=== PATIENT | female | born 1960 | race Caucasian/White ===

== ENCOUNTER 2019-09-15 08:05 | Outpatient (CLI) | payer BC, SELFPAY ==
--- NOTE | ~2019-09-15 | MM_ITS ---
EXAMINATION: MM screening [facility] BI w patrick HISTORY: Screening mammogram TECHNIQUE: Craniocaudal and mediolateral oblique 3-D tomosynthesis images were obtained and synthetic 2-D images were generated. CAD analysis was submitted and interpreted. COMPARISON: 08/26/2018, 07/30/2017, 05/14/2016 bilateral digital screening mammogram examinations BREAST PARENCHYMAL COMPOSITION: There are scattered areas of fibroglandular density. FINDINGS: Stable circumscribed benign-appearing left axillary tail lymph node, unchanged since 2015. There is no evidence of suspicious mass, calcification, or architectural distortion to suggest malignancy in either breast. There has been no suspicious interval change. IMPRESSION: 1. No mammographic evidence of malignancy. 2. Recommend routine screening mammography in one year. BI-RADS Category 2: Benign finding(s). Reviewed, dictated and finalized at location A. CHING DEPARTMENT SUPERVISOR
== END 2019-09-15 08:06 | disposition home or self-care (01) ==
PROVIDERS: PCP Family Medicine; Visit Provider Family Medicine
DX: Z12.31 Encounter for screening mammogram for malignant neoplasm of breast (principal)
CPT/HCPCS: 77063; 77067

== ENCOUNTER 2020-08-01 03:15 | Outpatient (CLI) | payer BC, SELFPAY ==
[2020-08-01 16:31] LABS: SARS-CoV-2 RNA PCR Negative
== END 2020-08-01 03:16 | disposition home or self-care (01) ==
LOC: ANHCOVIDDT 03:16
PROVIDERS: PCP Student in an Organized Health Care Education/Training Program; Visit Provider Internal Medicine Gastroenterology
DX: Z01.812 Encounter for preprocedural laboratory examination (principal); Z20.822 Contact with and (suspected) exposure to COVID-19
CPT/HCPCS: C9803; U0003; U0005

== ENCOUNTER 2020-08-04 01:31 | Day surgery (SDC) | payer BC, SELFPAY ==
[2020-07-22 09:59] VITALS: BMI 22.1
[2020-08-04 07:21] VITALS: BP 123/81; PULSE 113; RESP 18; TEMP 36.3; O2SAT 98
[2020-08-04] MEDS: LACTATED RINGERS 1,000 ML 150 ML IV CONT (07:35)
--- NOTE | 2020-08-04 08:06 | PM.IMHP ---
H&P: HPI History of Present Illness Date/Time: 08/04/20 08:06 Chief Complaint: Reason for visit is colonoscopy. Narrative: Reason for visit is colonoscopy. This very pleasant lady seen in consultation request of the primary physician. Impression: Screening colonoscopy. The patient has a family history of colorectal cancer. IBS with alternating constipation and diarrhea. HTN. Anxiety/depression. Recommendation: Colonoscopy. History: This very pleasant lady's here for screening colonoscopy. She has a family history colorectal cancer. She tends have alternating constipation and diarrhea. She has been diagnosed having IBS for years. Hematochezia, melena acholic stools at night. She is here for colonoscopy for screening. Physical examination: General: very pleasant patient in no acute distress. HEENT: Head was normocephalic sclerae is clear mouth without masses neck was supple. Heart: Rate rhythm regular without S3 or S4. Lungs: CTA. Abdomen: Soft with no guarding or rigidity. Bowel sounds were active. Neurologic: Cranial nerves 2 through 12 intact. No focal defects. No clonus. Musculoskeletal system: Revealed no joint tenderness or swelling no muscle atrophy. Extremities: Reveal no significant edema. Skin: Warm and dry with normal turgor. Mental status: intact. Patient is alert and oriented. Review of Systems Review of Systems: All systems reviewed & are unremarkable except as noted in HPI and below PMFSH Past Medical History Medical History (Updated 11/27/19 @ 13:44 by Cheri Sheikh NP) Broken toe Depression Essential (primary) hypertension Irritable bowel syndrome with both constipation and diarrhea Rosacea Surgical History Surgical History History of ear surgery 1984, 1988:stapedectomies: bilateral History of partial hysterectomy 2000 History of rectal surgery 2005 Family History Family History Mother Family history of osteoporosis Family history of rheumatoid arthritis Father Hypertension Family history of kidney disease Grandparent Carcinoma of colon Diabetes mellitus Sibling Family history of seizure disorder Other Family history of atrial fibrillation Social History Social History Social History: Changed to healthy diet and walks/hikes daily - Lost 150 lbs with lifestyle changes, maintaining weight now. Smoking status: Never smoker Second hand tobacco smoke exposure: No Alcohol intake: current Drinks per week: 2 Substance use: never Substance use type: does not use Living arrangements: with family Gender identity (if verbalized by the patient): Female Meds Home Medications and Allergies Home Medications Medication Instructions Recorded Confirmed Type calcium carbonate-vitamin D3 600 1 tablet PO DAILY 05/19/19 07/22/20 History mg(1,500 mg)-400 unit chewable tablet dicyclomine 10 mg capsule 10 mg PO BID #120 cap 05/19/19 07/22/20 Rx lisinopril 10 mg tablet 10 mg PO DAILY #90 tablet 02/09/20 07/22/20 Rx paroxetine HCl 20 mg tablet 20 mg PO DAILY #90 tablet 02/09/20 07/22/20 Rx meloxicam 15 mg PO DAILY 07/22/20 07/22/20 History Allergies Allergy/AdvReac Type Severity Reaction Status Date / Time erythromycin base Allergy Unknown Nausea Verified 08/04/20 07:13 naproxen AdvReac Unknown Ulcers Verified 08/04/20 07:13 Vital Signs Vital Signs - 24 hr 08/04/20 07:21 Temperature 36.3 C L Pulse Rate 113 H Respiratory Rate 18 Blood Pressure 123/81 Pulse Oximetry 98
--- NOTE | 2020-08-04 08:32 | WPDANESEPPF ---
Anes - Initial Pre Proc Eval Procedure: Operation Date: 08/04/20 08:30 Proposed Procedures p Screening Colonoscopy - Cb Lovell DO Date/Time: 08/04/20 08:32 Surgeon: Cb Lovell DO Pre Op Diagnosis: Neoplasm Screening Patient Data Age: 60 Gender: F Height: 5 ft 10 in Weight: 69.9 kg Last Vital Signs Temp 97.3 F L 08/04/20 07:21 Pulse 113 H 08/04/20 07:21 Resp 18 08/04/20 07:21 BP 123/81 08/04/20 07:21 Pulse Ox 98 08/04/20 07:21 Allergies Allergy/AdvReac Type Severity Reaction Status Date / Time erythromycin base Allergy Unknown Nausea Verified 08/04/20 07:13 naproxen AdvReac Unknown Ulcers Verified 08/04/20 07:13 Home Medications Medication Instructions Recorded Confirmed Type calcium carbonate-vitamin D3 600 1 tablet PO DAILY 05/19/19 07/22/20 History mg(1,500 mg)-400 unit chewable tablet dicyclomine 10 mg capsule 10 mg PO BID #120 cap 05/19/19 07/22/20 Rx lisinopril 10 mg tablet 10 mg PO DAILY #90 tablet 02/09/20 07/22/20 Rx paroxetine HCl 20 mg tablet 20 mg PO DAILY #90 tablet 02/09/20 07/22/20 Rx meloxicam 15 mg PO DAILY 07/22/20 07/22/20 History Patient hx anesthesia problems: none Family hx anesthesia problems: none PMFSH Past Medical History Medical History (Updated 11/27/19 @ 13:44 by Cheri Sheikh NP) Broken toe Depression Essential (primary) hypertension Irritable bowel syndrome with both constipation and diarrhea Rosacea Surgical History Surgical History History of ear surgery 1984, 1988:stapedectomies: bilateral History of partial hysterectomy 2000 History of rectal surgery 2006 Family History Family History Mother Family history of osteoporosis Family history of rheumatoid arthritis Father Hypertension Family history of kidney disease Grandparent Carcinoma of colon Diabetes mellitus Sibling Family history of seizure disorder Other Family history of atrial fibrillation Social History Social History Social History: Changed to healthy diet and walks/hikes daily - Lost 150 lbs with lifestyle changes, maintaining weight now. Smoking status: Never smoker Second hand tobacco smoke exposure: No Alcohol intake: current Drinks per week: 2 Substance use: never Substance use type: does not use Living arrangements: with family Gender identity (if verbalized by the patient): Female Anes - Eval Final PreProcedure Day of Procedure 08/04/20 08:32 Patient weight: normal Heart: regular rate and rhythm Lungs: clear to auscultation Airway: Mallampati scale class II Neurological: alert and oriented Last oral intake: >/= 8 hours ASA classification: II Emergent: no Anesthetic plan: proceed Anesthesia type and monitoring: general GIVS and standard monitoring Informed Consent: The patient's anesthetic plan and its attendant risks and benefits were discussed with the patient/family/POA. Questions were solicited and answers provided to the satisfaction of the patient/family/POA.
[2020-08-04 09:13] VITALS: BP 87/62; PULSE 79; RESP 24; O2SAT 100
[2020-08-04 09:23] VITALS: BP 104/75; PULSE 67; RESP 16; O2SAT 100
== END 2020-08-04 09:47 | disposition home or self-care (01) ==
PROVIDERS: PCP Student in an Organized Health Care Education/Training Program; Visit Provider Internal Medicine Gastroenterology
PROC: 0DJD8ZZ Inspection of Lower Intestinal Tract, Via Natural or Artificial Opening Endoscopic (ICD-10-PCS; CPT 45378; principal; 2020-08-04 08:30)
DX: Z12.11 Encounter for screening for malignant neoplasm of colon (principal); K52.9 Noninfective gastroenteritis and colitis, unspecified; K63.5 Polyp of colon; K57.30 Diverticulosis of large intestine without perforation or abscess without bleeding; Z80.0 Family history of malignant neoplasm of digestive organs; I10 Essential (primary) hypertension; F41.8 Other specified anxiety disorders
CPT/HCPCS: 45380; 88305; J7120

== ENCOUNTER 2020-10-31 07:30 | Outpatient (CLI) | payer BC, SELFPAY ==
--- NOTE | ~2020-10-31 | MM_ITS ---
EXAMINATION: MM screening [facility] BI w patrick HISTORY: Screening mammogram TECHNIQUE: Craniocaudal and mediolateral oblique 3-D tomosynthesis images were obtained and synthetic 2-D images were generated. CAD analysis was submitted and interpreted. COMPARISON: 09/15/2019, 08/26/2018, 07/30/2017 BREAST PARENCHYMAL COMPOSITION: The breasts are almost entirely fatty. FINDINGS: RIGHT BREAST: An asymmetry is present in the middle third of the outer breast 6 cm from the nipple on the craniocaudal view. LEFT BREAST: There is no evidence of suspicious mass, calcification, or architectural distortion to s uggest malignancy. There has been no significant interval change. IMPRESSION: 1. Right breast asymmetry on the craniocaudal view. 2. Additional mammographic views and possible breast ultrasound are recommended. BI-RADS Category 0: Incomplete: Needs additional imaging evaluation. Reviewed, dictated and finalized at location A. IMPRESSION: 1. Right breast asymmetry on the craniocaudal view. 2. Additional mammographic views and possible breast ultrasound are recommended . BI-RADS Category 0: Incomplete: Needs additional imaging evaluation.
== END 2020-10-31 07:31 | disposition home or self-care (01) ==
LOC: ANHIMG 07:34
PROVIDERS: PCP Student in an Organized Health Care Education/Training Program; Visit Provider Student in an Organized Health Care Education/Training Program
DX: Z12.31 Encounter for screening mammogram for malignant neoplasm of breast (principal); R92.8 Other abnormal and inconclusive findings on diagnostic imaging of breast
CPT/HCPCS: 77063; 77067

== ENCOUNTER 2020-11-22 11:14 | Outpatient (CLI) | payer BC, SELFPAY ==
--- NOTE | ~2020-11-22 | MMUS_ITS ---
EXAMINATION: MM diagnostic mammo unilat RT, US breast RT limited HISTORY: Right breast asymmetry on screening mammogram TECHNIQUE: Additional 3-D tomosynthesis images of the right breast were performed and synthetic 2-D i mages were generated. CAD analysis was submitted and interpreted. High resolution limited right breas t ultrasound was performed. COMPARISON: 10/31/2020, 09/15/2019, 08/26/2018, 07/30/2017 FINDINGS: MAMMOGRAPHIC FINDINGS: An asymmetry persists in the middle third of the outer breast at the 9:00 6 cm from the nipple on the craniocaudal view. No suspicious calcification or architectural distortion are identified. ULTRASOUND: There is no evidence of focal abnormal solid or cystic mass in the vicinity of the mammographic findi ng in question IMPRESSION: 1. Probably benign right breast asymmetry. 2. Recommend 6 month follow-up right diagnostic mammogram and ultrasound. BI-RADS category 3, probably benign findings. Reviewed, dictated and finalized at location A. IMPRESSION: 1. Probably benign right breast asymmetry. 2. Recommend 6 month follow-up right diagnostic mammogram and ultrasound. BI-RADS category 3, probably benign findings.
== END 2020-11-22 11:15 | disposition home or self-care (01) ==
PROVIDERS: PCP Student in an Organized Health Care Education/Training Program; Visit Provider Student in an Organized Health Care Education/Training Program
DX: N64.89 Other specified disorders of breast (principal)
CPT/HCPCS: 76642; 77065

== ENCOUNTER 2021-06-02 12:41 | Outpatient (CLI) | payer BC, SELFPAY ==
--- NOTE | ~2021-06-02 | MM_ITS ---
EXAMINATION: MM diagnostic erick RT w patrick HISTORY: Six-month follow-up for probably benign right breast asymmetry TECHNIQUE: Craniocaudal, mediolateral, and mediolateral oblique 3-D tomosynthesis images of the right breast were performed and synthetic 2-D images were generated. CAD analysis was submitted and interp reted. COMPARISON: 11/22/2020, 10/31/2020, 09/15/2019, 08/26/2018 BREAST PARENCHYMAL COMPOSITION: The breasts are almost entirely fatty. FINDINGS: No persistent asymmetry is identified. There is no evidence of suspicious mass, calcificati on, or architectural distortion to suggest malignancy. There has been no suspicious interval change. IMPRESSION: 1. No mammographic evidence of malignancy. 2. Routine screening mammography is recommended. BI-RADS Category 1: Negative Reviewed, dictated and finalized at location A. ET MANAGER
== END 2021-06-02 12:42 | disposition home or self-care (01) ==
PROVIDERS: PCP Student in an Organized Health Care Education/Training Program; Visit Provider Student in an Organized Health Care Education/Training Program
DX: N64.89 Other specified disorders of breast (principal)
CPT/HCPCS: 77061; 77065; G0279

== ENCOUNTER 2022-02-07 07:46 | Outpatient (CLI) | payer BC, SELFPAY ==
--- NOTE | ~2022-02-07 | MM_ITS ---
EXAMINATION: MM screening er[facility] BI w patrick HISTORY: Screening mammogram TECHNIQUE: Craniocaudal and mediolateral oblique 3-D tomosynthesis images were obtained and synthetic 2-D images were generated. CAD analysis was submitted and interpreted. COMPARISON: 06/02/2021 diagnostic right mammogram 11/22/2020 diagnostic right mammogram and limited right breast ultrasound 10/31/2020, 09/15/2019, 08/26/2018 bilateral screening mammogram examinations BREAST PARENCHYMAL COMPOSITION: There are scattered areas of fibroglandular density. FINDINGS: There is no evidence of suspicious mass, calcification, or architectural distortion to sugg est malignancy in either breast. There has been no suspicious interval change. IMPRESSION: 1. No mammographic evidence of malignancy. 2. Recommend routine screening mammography in one year. BI-RADS Category 1: Negative Reviewed, dictated and finalized at location A.
== END 2022-02-07 07:47 | disposition home or self-care (01) ==
LOC: ANHIMG 07:48
PROVIDERS: PCP Student in an Organized Health Care Education/Training Program; Visit Provider Student in an Organized Health Care Education/Training Program
DX: Z12.31 Encounter for screening mammogram for malignant neoplasm of breast (principal)
CPT/HCPCS: 77063; 77067

== ENCOUNTER 2022-03-30 13:15 | Outpatient (CLI) | payer BC, SELFPAY ==
--- NOTE | ~2022-03-30 | DEXA_ITS ---
Bone Density Report Name: CAMILO CASEY Age: 61 Sex: Female Ethnicity: White Date of : 1960 Indication: postmenopausal; screening for osteoporosis; inflammatory bowel disease; hysterectomy; Referring Provider: CHARLOTTE, CARLOS EDUARDO Study: Bone densitometry was performed. Exam Date: March 30, 2022 Accession number: [id number] Bone Density: Region BMD T-score Z-score Classification AP Spine(L1-L4) 0.938 -1.0 0.7 Normal Femoral Neck (Left) 0.765 -0.8 0.7 Normal Total Hip (Left) 0.801 -1.2 0.0 Osteopenia Femoral Neck (Right) 0.838 -0.1 1.3 Normal Total Hip (Right) 0.869 -0.6 0.5 Normal Total Hip Mean 0.835 -0.9 0.3 Normal World Health Organization criteria for BMD impression classify patients as: Normal (T-score at or above -1.0), Osteopenia (T-score between -1.0 and -2.5), or Osteoporosis (T-score at or below -2.5). 10-year Fracture Risk(1): Major Osteoporotic Fracture 7.5% Hip Fracture 0.4% Reported Risk Factors: [place] (), Neck BMD=0.765, BMI=24.5 (1) FRAX(R) Version 3.08. Fracture probability calculated for an untreated patient. Fracture probability may be lower if the patient has received treatment. Previous Exams: Region Exam Age BMD T-score BMD Change BMD Change Date g/cm2 vs Baseline vs Previous AP Spine (L1-L4) 03/30/2022 61 0.938 -1.0 -0.061 (-6.1%) -0.061 (-6.1%) 07/30/2017 57 1.000 -0.4 Total Hip(Left) 03/30/2022 61 0.801 -1.2 -0.026 (-3.1%) -0.026 (-3.1%) 07/30/2017 57 0.827 -0.9 Total Hip(Right) 03/30/2022 61 0.869 -0.6 0.023 (2.7%) 0.023 (2.7%) 07/30/2017 57 0.846 -0.8 *Denotes significance at 95% confidence level, LSC for AP Spine = 0.022 g/cm2, LSC for Total Hip = 0.027 g/cm2 Clinical Information Provided by Patient: Has used the following medications: Calcium Has the following medical conditions: Inflammatory bowel diseases, Hysterectomy Patient maximum height was 69.5 Menopause Age: 40 Does not regularly consume dairy products Drinks caffeinated beverages Onset of menses at age 12 Number of children 3 Impression: The patient has low bone mass, based on the Left Total Hip T-score. The patient has an estimated ten-year risk of hip fracture of 0.4% and an estimated ten-year risk of major fracture of 7.5%, based on the WHO FRAX algorithm. The BMD for the AP Spine (L1-L4) decreased, changing by -6.1% since the last DXA exam. Discussion: BONE DENSIT
== END 2022-03-30 13:16 | disposition home or self-care (01) ==
PROVIDERS: PCP Student in an Organized Health Care Education/Training Program; Visit Provider Registered Nurse
DX: Z78.0 Asymptomatic menopausal state (principal); M85.852 Other specified disorders of bone density and structure, left thigh
CPT/HCPCS: 77080

== ENCOUNTER 2024-06-10 09:00 | Outpatient (RCR) | payer BC, SELFPAY ==
--- NOTE | 2024-05-20 11:09 | OPREHPOC ---
Outpatient Therapy Plan of Care This is a Multidisciplinary Plan of Care that may contain components documented by all disciplines (PT, OT, and ST.) PT Problem 1 PT Problem #1 Knowledge Deficit PT Goal 1 Goal / Goal Update 1. Patient will perform independent HEP Target Visit 2 PT Problem 2 PT Problem #2 Impaired Strength PT Goal 1 Goal / Goal Update 1. Normal pelvic floor muscle tone Target Visit 4 PT Problem 3 PT Problem #3 Impaired Functional ADLs PT Goal 1 Goal / Goal Update 1. Patient will report no fecal incontinence for at least 2 weeks 2. Patient will report no more than 3 BM per day Target Visit 4
--- NOTE | 2024-05-20 11:09 | PTOPEVAL1 ---
Assessment and note entered by Nicki Pryor DPT Evaluation Information Assessment Status Evaluation Diagnosis m62.89 ICD-10 Condition Codes (PT) Weakness R53.1 Subjective Information Pt reports 50 years of issues but most recently was diagnosed with microscopic colitis. Has also been told she is chronically constipated and then getting spillover . Has been using metamucil and magnesium citrate. Denies urinary incontinence or pain with urination. Voids 4-8 times a day and sometimes 1 time at night. Can hold urge to void up to 60 minutes. BM multiple times a day, up to 10- 12 times. Reports a lot of gas and Frequent BM after lunch and dinner. On a good day will have 1- 2 BM. Fecal incontinence probably 5 times in the last month. Wears pads at times. Denies history of pelvic pain. Pt has been 3 times, delivered twice, second with twins. All vaginal deliveries, episiotomy with first. Hysterectomy 20 years ago. Rectal surgery for a fissure in 2005. Previously diagnosed with IBS. Pt reports feeling limited and does not schedule things in the afternoon or evening due to bowel issues. Diet: water and coffee x 3 cups a day of half decaf and half regular. 1-2 alcoholic drinks per week. Does not notice coffee or alcohol makes symptoms worse. Eats 3 meals a day. Eats all food groups but may not always get much vegetables. States she gets a lot of fiber per day but unsure amount. Patient goal: complete BM, avoid bowel incontinence Reported Pain Level Pain Score 0: Self Report Assessment PT Clinical Summary The patient is presenting to skilled therapy with a chronic history of GI issues and has been diagnosed with microscopic colitis as well as chronic constipation. She reports increased bowel frequency and fecal incontinence. She demonstrates increased pelvic floor muscle tone and decreased pelvic floor and core strength. These impairments are contributing to her symptoms including incontinence and difficulty with activities out in the community. She will highly benefit from therapy to address these impairments in order to improve overall function. Plan of Care Interventions Electrical Stimulation,Manual Therapy,Neuro Re- education,Patient/Caregiver Education,Therapeutic Activities,Therapeutic Exercise PT Services Indicated Yes Treatment Frequency and 1 time a week for 4 weeks Duration These treatments will address the objective and functional deficits as defined above. The patient will be advanced safely and appropriately in order for the patient to progress towards his/her prior level of function. Additional exercises will be introduced and as well as a comprehensive home exercise program upon discharge, if needed, ?to ensure carryover of functional gains achieved in the clinic. This treatment plan has been reviewed and agreement upon by the patient.
--- NOTE | 2024-06-10 09:30 | OPREHPOC ---
Outpatient Therapy Plan of Care This is a Multidisciplinary Plan of Care that may contain components documented by all disciplines (PT, OT, and ST.) PT Problem 1 PT Problem #1 Knowledge Deficit PT Goal 1 Goal / Goal Update 1. Patient will perform independent HEP Target Visit 2 Progress Met PT Problem 2 PT Problem #2 Impaired Strength PT Goal 1 Goal / Goal Update 1. Normal pelvic floor muscle tone Target Visit 4 Progress Not Met PT Problem 3 PT Problem #3 Impaired Functional ADLs PT Goal 1 Goal / Goal Update 1. Patient will report no fecal incontinence for at least 2 weeks 2. Patient will report no more than 3 BM per day update 06/10/24 1. 1 in last week 2. met Target Visit 4 Progress Partially Met
--- NOTE | 2024-06-10 09:30 | PTOPPROG ---
Assessment and note entered by Nicki Pryor DPT Evaluation Information Assessment Status Progress Diagnosis m62.89 ICD-10 Condition Codes (PT) Weakness R53.1 Subjective Information Pt reports she is feeling overall better since starting therapy. Denies urinary incontinence. Fecal incontinence 1 time over the last week. BM 1 -3 times a day over the last week, minimal gas. Assessment PT Clinical Summary The patient has made good progress during therapy and reports greatly decreased frequency of BM. She demonstrates improved hip and core strength. Due to her progress, plan to hold therapy this time. She has been educated to continue HEP and independent strategies and will follow up with PT if symptoms worsen. Plan of Care Interventions Electrical Stimulation,Manual Therapy,Neuro Re- education,Patient/Caregiver Education,Therapeutic Activities,Therapeutic Exercise PT Services Indicated No Treatment Frequency and hold therapy, patient to follow up if symptoms Duration worsen in the next month These treatments will address the objective and functional deficits as defined above. The patient will be advanced safely and appropriately in order for the patient to progress towards his/her prior level of function. Additional exercises will be introduced and as well as a comprehensive home exercise program upon discharge, if needed, ?to ensure carryover of functional gains achieved in the clinic. This treatment plan has been reviewed and agreement upon by the patient.
--- NOTE | 2024-07-13 13:12 | PTOPDC ---
Assessment and note entered by Nicki Pryor DPT Evaluation Information Assessment Status Discharge - Pt Not Present Diagnosis m62.89 ICD-10 Condition Codes (PT) Weakness R53.1 Subjective Information - Assessment PT Clinical Summary Patient case to be discharged per plan in previous note. No therapy needs at this time. Plan of Care PT Services Indicated No
== END 2024-07-13 13:36 | disposition home or self-care (01) ==
LOC: ANHGOSHPT 09:00
PROVIDERS: PCP Student in an Organized Health Care Education/Training Program
DX: M62.89 Other specified disorders of muscle (principal); M16.0 Bilateral primary osteoarthritis of hip
CPT/HCPCS: 97110; 97112; 97140; 97162; 97530

== ENCOUNTER 2025-06-21 13:05 | Emergency (ER) | payer MEDICARE, SELFPAY ==
[2025-06-21 13:20] VITALS: BP 134/83; PULSE 70; RESP 16; TEMP 36.5; O2SAT 98
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
[2025-06-21] MEDS: SILVER SULFADIAZINE 1% CR 50 GM JAR (*BKC) 1 APPLIC TOPICAL (13:36)
[2025-06-21] MEDS: TETANUS,DIPHTHERIA,AC PERTUSSIS ADULT (0.5 ML) BOOSTRIX IM (13:47)
== END 2025-06-21 13:54 | disposition home or self-care (01) ==
PROVIDERS: Emergency Provider Nurse Practitioner; PCP Student in an Organized Health Care Education/Training Program
DX: T23.212A Burn of second degree of left thumb (nail), initial encounter (principal); X12.XXXA Contact with other hot fluids, initial encounter; Z23 Encounter for immunization; I10 Essential (primary) hypertension; L71.9 Rosacea, unspecified; F32.A Depression, unspecified
CPT/HCPCS: 16020; 90471; 90715; 99213; A9270; G0463